=== PATIENT | female | born 1960 | race Hispanic/Latino ===

== ENCOUNTER 2016-08-15 09:07 | Day surgery (SDC) | payer OTHER ==
[~2016-08-15] VITALS: Ht 161.3 cm; Wt 66.5 kg
[~2016-08-15 09:07] MED LIST: OMEP40CA36 PO; OXYC1TAB24 PO; Sodium Chloride LOK Flush 10 mL Syringe IV PRN; fentaNYL-PF 50 mCg/mL 2 mL Inj IVPUSH PRN
[2016-08-15 10:53] VITALS: BP 118/78; PULSE 76; RESP 14; O2SAT 96
[2016-08-15] MEDS: 0.9% Sodium Chloride 1,000 ML IV SCH ×2 (11:47→11:55)
[2016-08-15 12:01] VITALS: BP 102/72; PULSE 78; RESP 12; O2SAT 97
[2016-08-15 12:12] VITALS: BP 130/82; PULSE 73; RESP 12; O2SAT 99
--- NOTE | 2016-08-15 12:17 | ENDO ---
[address] [address] ENDOSCOPY PROCEDURE PATIENT: STEPHANIE GEE : 1960 MR#: [id number] ADMIT: 08/15/2016 JOB ID: [id number] PROCEDURE: Esophagogastroduodenoscopy. 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 ANESTHESIA: Patient's ASA classification is two. Mallampati score is two. MEDICATIONS: 1. Versed 3 mg. 2. Fentanyl 50 mcg. INSTRUMENT USED: [id number]. PROCEDURE DETAILS: After informed consent was obtained, the patient was brought into the GI suite, where she was placed on oxygen via nasal cannula and monitored with continuous pulse oximeter, telemetry, and blood pressure monitoring. A time-out was performed, then she was placed in the left lateral decubitus position and a bite block was placed. Medications were then administered for sedation. The standard EGD scope was inserted through the bite block and advanced under direct visualization to the 2nd portion of duodenum without difficulty. FINDINGS: 1. Normal appearing duodenal bulb, first and second portion. 2. Normal-appearing pylorus, antrum, and gastric body. 3. Retroflexed views in the gastric body revealed a small hiatal hernia. 4. The diaphragmatic hiatus was at approximately 41 cm and the squamocolumnar junction, which was regular, was at 38 cm. 5. Normal appearing esophagus. IMPRESSION: Small hiatal hernia. Otherwise, normal exam to second portion of the duodenum. RECOMMENDATIONS: 1. Omeprazole 20 mg p.o. daily. 2. Follow up in GI Clinic. 3. Smoking cessation. COMPLICATIONS: None. ESTIMATED BLOOD LOSS: Less than 5 mL. CC: DENNIS Winters
[2016-08-15 12:19] VITALS: BP 110/80; PULSE 67; RESP 12; O2SAT 100
--- NOTE | 2016-08-16 13:52 | PATH ---
SURGICAL PATHOLOGY Attending Physician:Zohreh Olson CASE STATUS: Signed Out PATIENT NAME: STEPHANIE GEE PID: [id number] : 1960 DATE COLLECTED:08/15/2016 20:50 SPECIMEN: Gastric, Biopsy CLINICAL HISTORY: 1). GASTRIC BIOPSY FINAL DIAGNOSIS: 1.GASTRIC BIOPSY: FOCAL MINIMAL SUPERFICIAL CHRONIC GASTRITIS INVOLVING FUNDIC MUCOSA. Negative for evidence of Helicobacter. Negative for intestinal metaplasia. Negative for dysplasia and malignancy. ICD10 CODE K29.70 GROSS DESCRIPTION: The specimen is received in one formalin filled container labeled with the patient's name, sublabeled "gastric" and consists of 3 portions of tissue which aggregate to 0.3 x 0.3 x 0.2 CM. The specimen is entirely submitted in one cassette. 08/15/2016 [facility] MICRO DESCRIPTION: See diagnosis. ICD-9 CODES: CPT CODES: 1: 52607 Electronically Signed Out Dewey Hughes MD [facility] [address], [place] [address] Technical component performed at [facility], [facility] [address], [place], [address]
== END 2016-08-15 23:59 | disposition home or self-care (01) ==
LOC: END 09:07
PROVIDERS: ATTEND Internal Medicine Gastroenterology
DX: K29.50 Unspecified chronic gastritis without bleeding (principal); K44.9 Diaphragmatic hernia without obstruction or gangrene; K22.70 Barrett's esophagus without dysplasia; B18.2 Chronic viral hepatitis C; F17.210 Nicotine dependence, cigarettes, uncomplicated; Z72.89 Other problems related to lifestyle
CPT/HCPCS: 43239; 88305; G0500; J2250; J3010; J7030